=== PATIENT | female | born 1980 | race American Indian/Alaskan Native ===

== ENCOUNTER 2020-08-25 06:36 | Day surgery (SDC) | payer MEDICAID ==
[2020-08-25] MEDS ORDERED: BUPIVACAINE/PF (0.5%) 5 MG/1 ML 30 ML VIAL INFILTRATI ONE (06:56)
[2020-08-25] MEDS ORDERED: LIDOCAINE (1%) 10 MG/1 ML VIAL 20 ML MDV ONE (06:56)
--- NOTE | 2020-08-25 07:06 | Anesthesia Day of Surgery ---
Anesthesia Day of Surgery - Day of Surgery Patient Examined: Yes Patient H&P Reviewed: Yes Patient is NPO: Yes
--- NOTE | 2020-08-25 07:06 | Anesthesia Consultation ---
Anesthesia Consult and Med Hx Date of service: 08/25/20 - Airway Anesthetic Teeth Evaluation: Good ROM Head & Neck: Adequate Mental/Hyoid Distance: Adequate Mallampati Class: Class II Intubation Access Assessment: Good - Pulmonary Exam CTA: Yes - Cardiac Exam Cardiac Exam: RRR - Pre-Operative Health Status ASA Pre-Surgery Classification: ASA2 Proposed Anesthetic Plan: General - Central Nervous System Hx Psychiatric Problems: No - Hematic Hx Sickle Cell Disease: Yes (Trait only) - Other Systems Hx Cancer: Yes
[2020-08-25 07:25] VITALS: BP 102/78
--- NOTE | 2020-08-25 08:57 | Procedure Note ---
Date of procedure: 08/25/20 Pre-op diagnosis: cervical ca Post-op diagnosis: same Procedure: right sided port removal Findings: HPI and indication: 39-year-old female with a past medical history of cervical cancer status post chemotherapy who was seen in the surgery clinic for evaluation. The patient presented for port removal as her chemotherapy was completed last year. The procedure, risk, benefits, alternatives were discussed and questions answered. Consent was obtained. Procedure in detail: Patient was brought back to the minor procedure room and placed on the stretcher in supine position. The right upper chest and neck were prepped and draped in usual sterile fashion and a timeout performed. Patient was placed flat and in slight Trendelenburg. Local anesthetic was infiltrated to skin at the intended incision site. Using a 15 blade, the old scar was excised and the incision elongated. Dissection was carried down through the skin and subcutaneous tissue using electrocautery. The port was dissected free from the capsule using electrocautery and blunt dissection with a hemostat. Once it was circumferentially freed the port along with the catheter were removed in 1 piece. This was passed off the table as a specimen for identifi cation only. Pressure was held for approximately 5 minutes. There was no bleeding and hemostasis was carefully ensured. The wound was then irrigated. The wound was closed in a layered fashion. The deep layer was closed using interrupted 3-0 Vicryl stitches. The skin was approximated using 4-0 Monocryl subcuticular running stitch and skin glue. The patient tolerated the procedure well. All sharps, instruments, sponges were accounted for. Patient was discharged to home in stable condition. Anesthesia: local Surgeon: SANDRA THOMSON Estimated blood loss: minimal Pathology: list (port for ID only) Specimen disposition: to lab Condition: stable Disposition: other (home)
== END 2020-08-25 06:37 | disposition home or self-care (01) ==
LOC: OR 06:36
PROVIDERS: ATTEND Surgery
DX: Z45.2 Encounter for adjustment and management of vascular access device (principal); C53.9 Malignant neoplasm of cervix uteri, unspecified; G43.909 Migraine, unspecified, not intractable, without status migrainosus; Z88.8 Allergy status to other drugs, medicaments and biological substances; Z98.891 History of uterine scar from previous surgery; Z98.890 Other specified postprocedural states
CPT/HCPCS: 88300; 88302